=== PATIENT | male | born 1940 | race Asian ===

== ENCOUNTER 2020-03-02 16:06 | Inpatient (IN) | payer OTHER, SELFPAY ==
[~2020-03-02] VITALS: Ht 167.6 cm; Wt 61.2 kg
--- NOTE | 2020-03-02 16:06 | NUR ---
Patient BIBA ALS accompanied by LACoFD, transferred to bed 7. RN evaluating the patient at bedside.
[2020-03-02 16:12] VITALS: BP 77/48
--- NOTE | 2020-03-02 16:19 | NUR ---
79 YO MALE BIBA FROM TELETR[facility] OPER[facility], EMS 12 LEAD READS HEART BLOCK PT HYPOTENSIVE PMH- DIALYSIS T/TH/SAT, L ARM SHUNT
--- NOTE | 2020-03-02 16:49 | NUR ---
DAUGHTER YRN FLORIDALMA- [phone]
[2020-03-02] MEDS ORDERED: cefTRIAXone 1,000 MG VIAL ONE (16:51)
--- NOTE | 2020-03-02 16:57 | NUR ---
senior tech manufacturing engineering at bedside.
[2020-03-02] MEDS ORDERED: NOREPINEPHRINE 8 MG in DEXTROSE 5% 250 ML IV PRN (17:20)
[2020-03-02 17:58] LABS: BASOPHILS % (AUTO) 0.3 % (0.0-2.0); EOSINOPHILS % (AUTO) 0.5 % (0.0-4.0); HEMATOCRIT 31.9 % (36-52); HEMOGLOBIN 9.8 g/dL (12.0-18.0); LYMPHOCYTES # (AUTO) 0.8 K/uL (2.0-11.5); LYMPHOCYTES % (AUTO) 10.4 % (20.5-51.1); MEAN CORPUSCULAR HEMOGLOBIN 25 pg (27-31); MEAN CORPUSCULAR HGB CONC 31 g/dL (33-37); MEAN CORPUSCULAR VOLUME 81.9 fL (80-94); MONOCYTES # (AUTO) 0.5 K/uL (0.8-1.0); MONOCYTES % (AUTO) 5.7 % (1.7-9.3); NEUTROPHILS # (AUTO) 6.6 K/uL (1.8-7.7); NEUTROPHILS % (AUTO) 83.1 % (42.2-75.2); PLATELET COUNT (AUTO) 125 K/uL (140-450); RED CELL DISTRIBUTION WIDTH 16.3 % (11.6-13.7)
--- NOTE | 2020-03-02 19:00 | NUR ---
PT CALLED FOR UPDATE.
[2020-03-02 19:16] LABS: ALBUMIN 1.6 g/dL (3.4-5.0); ANION GAP 14.8 (8-16); ASPARTATE AMINOTRANSFERASE 24 U/L (15-37); CARBON DIOXIDE 29.6 mmol/L (21-32); CHLORIDE 97 mmol/L (98-107); GLUCOSE 162 mg/dL (74-106); POTASSIUM 3.4 mmol/L (3.5-5.1); SODIUM SERUM 138 mmol/L (136-145); TOTAL BILIRUBIN 0.7 mg/dL (0.0-1.0); UREA NITROGEN, BLOOD 36 mg/dL (7-18)
[2020-03-02 19:18] LABS: CREATININE 5.6 mg/dL (0.6-1.3)
--- NOTE | 2020-03-02 19:23 | NUR ---
Pt report RECEIVED FROM SALVATORE RAMOS. Transfer of care at this time.
--- NOTE | 2020-03-02 21:03 | NUR ---
PT IS RESTING IN BED. BP IS 83/46,
--- NOTE | 2020-03-02 21:04 | NUR ---
PT'S SPO2: 95% SULMA MEJÍA MADE AWARE. PT IS C/O GENERALIZED BODY PAIN WHEN TOUCHED. 3/10 PAIN. SIDE RAIL X2, BED IN LOW POSITION, WILL CONTINUE TO MONITOR.
--- NOTE | 2020-03-02 23:04 | NUR ---
PT'S BP 78/45, SULMA ELLIOTT MADE AWARE.
--- NOTE | 2020-03-02 23:05 | NUR ---
REQUESTED 2ND REQUEST FROM PT, PT STATES "NO, I DON'T HAVE ANY, AND I DO NOT FEEL LIKE IT." SULMA ELLIOTT, AND LAB MADE AWARE.
[2020-03-02] MEDS ORDERED: NACL 0.9% 1,000 ML IV ONE (23:15)
--- NOTE | 2020-03-02 23:31 | NUR ---
PT TAKEN TO CT
--- NOTE | 2020-03-02 23:41 | NUR ---
NS 1,000ML BOLUS STARTED PER ERMD ORDER. WILL REEVALUATE PT IN A FEW MINUTES FOR BP INCREASE.
--- NOTE | 2020-03-02 23:55 | NUR ---
PT'S BP RECHECKED NOW AT 99/54, SULMA ELLIOTT MADE AWARE.
[2020-03-03] VITALS (21 sets, daily range): BP systolic 95–131; BP diastolic 36–81
[2020-03-03] MEDS ORDERED: ALBUMIN HUMAN 25% 100 ML IV ONE (00:55)
--- NOTE | 2020-03-03 00:57 | NUR ---
PT SIGNED CONSENT FOR TRANSFER TO [facility]
--- NOTE | 2020-03-03 01:04 | NUR ---
ALBUMIN 25MG/ML IV WAS STARTED PER ERMD ORDER FOR BP. PT RESTING QUIETLY IN BED, NO DISTRESS VERBALIZED OR NOTED. R/R EQUAL, AND UNLABORED. SIDE RAIL X2, BED IN LOW POSITION, WILL CONTINUE TO MONITOR.
[2020-03-03] MEDS ORDERED: NOREPINEPHRINE 4 MG/4 ML VIAL IV ONE (02:18)
--- NOTE | 2020-03-03 02:25 | NUR ---
DR ELLIOTT AWARE OF PERSISTANT HYPOTENSION. VERBAL ORDER TO START LEVOPHED.
--- NOTE | 2020-03-03 02:30 | NUR ---
TRANSFER OF CARE. RECIVED REPORT FROM YUDI CHASE. PT AAO X3 TO PERSON, PLACE, SITUATION. PT HAS DIALYSIS SHUNT IN L UPPER ARM. BURIT HEARD, THRILL FELT. NO BP/IV/BLOOD DRAW IN L UPPER ARM. PT STATES HE LIVES AT HOME AND WAS AT [facility] [employer] WHEN 911 WAS CALLED AND HE WAS BROUGHT HERE. PT UNABLE TO TELL ME NAME OF PAPER TWISTER TENDER AND WHAT HOME MEDICATIONS HE IS TAKING. PT DENIES PAIN AT THIS TIME. BP: 87/47. LEVOPHED STARTED @ 5MCG/MIN IN R AC. IV @ R AC PATENT.
--- NOTE | 2020-03-03 02:30 | NUR ---
LEVOPHED STARTED AT 5MCG. SEE FLOWSHEET FOR VITAL SIGNS AND TITRATIONS.
--- NOTE | 2020-03-03 02:31 | NUR ---
EXPRESSED CONCERN OF NEED FOR CENTRAL LINE DUE TO LEVOPHED ADMINISTRATION WITH DR ELLIOTT. STATES "ITS FINE" NO FURTHER ORDERS RECEVIED.
--- NOTE | 2020-03-03 03:00 | NUR ---
SEE IV SPREAD SHEET FOR VS.
--- NOTE | 2020-03-03 03:30 | NUR ---
PT RESTING IN BED, EYES CLOSED. PT RESPONSIVE TO VERBAL STIMULI. PT DENIES PAIN. PT IV SITE IS PATENT, NO PAIN, REDNESS AT SITE. PT BED LOCKED AND IN LOWEST POSTION. SIDE RAIL UP X 1.
--- NOTE | 2020-03-03 04:30 | NUR ---
RECEIVED PT FROM ER VIA GURNEY; PT TRANSFERRED TO ICU BED 7.MONITORS ATTACHED.SR WITH 1ST DEGREE AV BLOCK NOTED.PT ALERT AND ORIENTED X 2-3; FORGETFUL.ON 02NC AT 2LPM.NO SOB NOTED.WITH PERIPHERAL IV TO RT AC G20 INFUSING LEVOPHED 8MG IN 250ML D5W AT 5MCG/MIN(9.37ML/HR) ; SALINE LOCK TO CAMACHO G20 AND RT WRIST G22.ABDOMEN LARGE,SOFT NON TENDER.DANIEL AV SHUNT WITH BRUIT /THRILL.PT OLIGURIC.HD SCHEDULED FOR TTHS.WITH GENERALIZED WEAKNESS NOTED TO ALL EXTREMITIES.SKIN INTACT BUT DRYNESS NOTED TO ALL TOES.DENIES PAIN
--- NOTE | 2020-03-03 04:45 | NUR ---
Patient will be admitted to care of . Admited to ICU. Will go to room 7. Belongings list completed. Report to DIONTE CHASE.
--- NOTE | 2020-03-03 06:00 | NUR ---
PHONE CALL TO PTS DEDRICK; PER PTS PT HAS ADVANCE DIRECTIVE; COPY REQUESTED.PTS SAID SHE WILL BRING A COPY. PTS HISTORY ALSO PROVIDED BY PTS .SHE SAID SHE DOES NOT KNOW IF PT RECEIVED PNEUMONIA AND FLU VACCINE.WILL F/U
--- NOTE | 2020-03-03 06:45 | NUR ---
DR TAMEZ IN THE UNIT; SHOWED DR TAMEZ THE COPY OF THE ADVANCE DIRECTIVE; PER MD CHANGE CODE STATUS TO DNR ALSO CONSULTED LAUREN PATEL FOR HD ORDERS.AWAITING REPLY.SPOKE WITH EXCHANGE
--- NOTE | 2020-03-03 07:00 | NUR ---
REPORT GIVEN TO RAGHAV CHASE FOR CONTINUITY OF CARE
[2020-03-03] MEDS ORDERED: guaiFENesin DM 200/20 MG-10 ML 10 ML UDC PO PRN (07:10)
[2020-03-03] MEDS ORDERED: DOCUSATE SODIUM 100 MG GELCAP PO PRN (07:10)
[2020-03-03] MEDS ORDERED: HYDROcodone/APAP 7.5/325 MG 1 TAB PO PRN (07:10)
[2020-03-03] MEDS ORDERED: KCL 20 MEQ/WATER INJ PREMIX 200 ML IV PRN (07:10)
[2020-03-03] MEDS ORDERED: ONDANSETRON 4 MG/2 ML VIAL IM/IVP PRN (07:10)
[2020-03-03] MEDS ORDERED: ACETAMINOPHEN 325 MG TAB PO PRN (07:10)
[2020-03-03] MEDS ORDERED: ZOLPIDEM 5 MG TAB PO PRN (07:10)
[2020-03-03] MEDS ORDERED: NOREPINEPHRINE 8 MG in DEXTROSE 5% 250 ML IV PRN (07:15)
[2020-03-03] MEDS: DEXT 5% /NACL 0.9% 1,000 ML IV SCH ×2 (08:30→20:34)
[2020-03-03] MEDS ORDERED: PRO5 PO (08:45)
[2020-03-03] MEDS ORDERED: ALLO100T21 PO (08:45)
[2020-03-03] MEDS ORDERED: PANT40EC PO (08:45)
[2020-03-03] MEDS ORDERED: NEP PO (08:45)
[2020-03-03] MEDS ORDERED: PRAV20TA6 PO (08:45)
[2020-03-03] MEDS ORDERED: VITA1TAB44 PO (08:45)
[2020-03-03] MEDS ORDERED: APIX2.5 PO (08:45)
[2020-03-03] MEDS ORDERED: ASPI-1822 PO (08:46)
[2020-03-03 08:48] LABS: BASOPHILS % (AUTO) 0.1 % (0.0-2.0); EOSINOPHILS # (AUTO) 0.1 K/uL (0-0.4); EOSINOPHILS % (AUTO) 0.8 % (0.0-4.0); HEMATOCRIT 27.7 % (36-52); HEMOGLOBIN 8.7 g/dL (12.0-18.0); LYMPHOCYTES # (AUTO) 0.8 K/uL (2.0-11.5); MEAN CORPUSCULAR HEMOGLOBIN 26 pg (27-31); MEAN CORPUSCULAR HGB CONC 31 g/dL (33-37); MEAN CORPUSCULAR VOLUME 82.8 fL (80-94); MONOCYTES # (AUTO) 0.4 K/uL (0.8-1.0); MONOCYTES % (AUTO) 4.7 % (1.7-9.3); NEUTROPHILS # (AUTO) 7.3 K/uL (1.8-7.7); NEUTROPHILS % (AUTO) 85.4 % (42.2-75.2); PLATELET COUNT (AUTO) 81 K/uL (140-450); RED BLOOD CELL COUNT(AUTO) 3.35 MIL/uL (4.20-6.10); WHITE BLOOD COUNT (AUTO) 8.5 K/uL (4.8-10.8)
[2020-03-03 09:00] LABS: ANION GAP 9.5 (8-16); CARBON DIOXIDE 33.5 mmol/L (21-32); CHLORIDE 101 mmol/L (98-107); GLUCOSE 106 mg/dL (74-106); SODIUM SERUM 141 mmol/L (136-145); UREA NITROGEN, BLOOD 39 mg/dL (7-18)
[2020-03-03] MEDS ORDERED: PANTOPRAZOLE 40 MG TABEC PO SCH (09:00)
[2020-03-03] MEDS: APIXABAN 2.5 MG TAB PO SCH ×2 (09:00→20:29)
[2020-03-03 09:10] LABS: PROTHROMBIN TIME 12.9 secs (10.8-13.4)
[2020-03-03 09:23] LABS: CHOL/HDL RATIO 5.4 (1-4.5); FREE T4 (FREE THYROXINE) 1.2 ng/dL (0.76-1.46); MAGNESIUM 1.4 mg/dL (1.8-2.4); PHOSPHORUS 3.3 mg/dL (2.5-4.9); THYROID STIMULATING HORMONE 1.09 uIU/mL (0.34-3.74)
[2020-03-03 09:32] LABS: CREATININE 5.9 mg/dL (0.6-1.3)
--- NOTE | 2020-03-03 09:34 | NUR ---
PATIENT HAS BEEN SCREENED AND CATEGORIZED HIGH NUTRITION RISK. PATIENT WILL BE SEEN WITHIN 1-2 DAYS OF ADMISSION. 03/03/20-03/04/[address]
[2020-03-03] MEDS: PANTOPRAZOLE 40 MG INJ VIAL IVP SCH (10:00)
--- NOTE | 2020-03-03 10:48 | NUR ---
DISCHARGE PLANNING: THIS IS A 79 Y/O MALE PATIENT FROM HOME, WHO WAS BIBA DUE TO LOW BLOOD PRESSURE. PAST MEDICAL HISTORY INCLUDE ESRD, ON HD, SEVER CAD, S/P CABG AND AFIB. INITIAL DIAGNOSIS OF INTRACTABLE HYPOTENSION. CURRENT LABS INCLUDE WBC 8.5, H/H 8.7/27.7, NA/K 141/3.0, BUN/CREA 39/5.9, MAG 1.4, BNP 242. MRSA NARES, BLOOD CS PENDING. HEAD CT SHOWED NO EVIDENCE OF ACUTE INTRACRANIAL PATHOLOGY. CXR SHOWED MILD ELEVATION OF THE RIGHT DIAPHRAGM AND LEFT BASE SCARRING OR ATELECTASIS. CARDIO, PULMO AND NEPHRO CONSULTS IN PLACE. DC PLAN BACK TO HOME ONCE STABLE. CONTACTED PATIENT'S DEDRICK HUTNER AT [phone] TO GATHER INFORMATION. PER DEDRICK, THEY WERE AT THE DOCTOR[facility]S CLIN[facility] (DR. LYLE) YESTERDAY FOR CARDIO FOLLOW UP WHEN THE PATIENT'S BLOOD PRESSURE BECAME LOW AND THE PANTS CLOSER RECOMMENDED FOR THEM TO GO TO THE EMERGENCY ROOM AND AMBULACE TOOK THE PATIENT HERE WHEN SHE SPECIFICALLY TOLD THEM THAT THEY NORMALLY GO TO [facility]. PER DEDRICK, AMBULANCE PERSON TOLD HER 'NO, WE ARE TAKING THE PATIENT TO [facility]." SHE STATED THAT SHE DID NOT UNDERSTAND WHY TAKE THE PATIENT HERE WHEN [facility] IS JUST [address] FROM THE CLINIC, "I GUESS IT'S GOD'S WILL THAT IT WILL BE IN A DIFFERENT HOSPITAL THIS TIME. SHE PROVIDED ME WITH HER DAUGHTER'S YRN HEDRICK'S NUMBER [phone] IF I HAVE MORE QUESTIONS. CONTACTED YRN COOK AT THE PROVIDED NUMBER. PER YRN PATIENT WAS AT [facility] AND WAS DISCHARGED TO HOME ON FEBRUARY 14, 2020. SHE STATED PATIENT HAS A WALKER, WHEELCHAIR AND A BEDSIDE COMMODE AT HOME. SHE ALSO MENTIONED THAT THEIR IS A CAREGIVER WHO COMES IN T-TH-SAT DURING DIALYSIS DAYS TO HELP THEM OUT WITH TRANSPORT. PATIENT GOES TO [facility] FOR DIALYSIS T-TH-SAT AT 1315. TRANSPORTATION IS BEING PROVIDED BY [facility]. HIS REFINERY OPERATOR HELPER IS DR. AGUERO. YEE POOL, PATIENT WAS AT [facility]IOR TO [facility] AND WAS TOLD THAT THERE IS A MASS ON HIS "GUT" ON US AND COLOSCOPY WAS RECOMMENDED. GI FOLLOW UP APPOINTMENT IS SET FOR APR 13, 2020. SHE ALSO STATED THAT SHE REQUESTED PALLIATIVE CARE FROM THE INSURANCE AND NOTHING HAS BEEN AUTHORIZED YET. SHE STATED "SINCE THE PATIENT IS IN YOUR HOSPITAL, MAYBE YOU CAN DO THE COLONOSCOPY, SO HE WILL NOT GO TO HIS APPOINTMENT ANYMORE ON Mar. MY FATHER IS WEAK AND MY MOTHER IS OLD TOO. IT'S HARD FOR THEM TO GO TO FOLLOW UP VISITS." INFORMED HER THAT I WILL DISCUSS IT WITH THE ATTENDING. DR. TAMEZ MADE AWARE. PER DR. TAMEZ, WILL TRANSFER PATIENT BACK TO [facility] ONCE STABLE SO THEY CAN FOLLOW UP THE PATIENT THERE SINCE THEY HAVE ALL THE RECORDS. Addendum: 03/03/20 at 1236 by Ruchi Muro CM DC PLANNING: RECEIVED A CALL FROM [facility] SPOKE WITH [facility], SHE ASKED IF PATIENT IS STABLE TO TRANSFER TO [facility] , CONTACTED DR TAMEZ DISCUSSED PATIENT STABILITY, PER DR TAMEZ PT IS NOT STABLE FOR TRANSFER. INFORMED ERICA BURNETT AT [facility] STATED TO CONTACT HER WHEN PATIENT IS STABLE FOR TRANSFER. CM TO FOLLOW Addendum: 03/04/20 at 1056 by Ruchi Muro CM DC DEVELOPMENTAL SERVICES WORKER: RECEIVED A CALL FROM MATTHEW SPOKE WITH LEX MALDONADO REGARDING THE TRANSFER TO THE CONTRACTED FACILITY [facility]. ERICA STATED SHE REVIEWED THE CLINICALS BP IS WNL NO DRIPS , ECHO RESULT NORMAL AND REQUESTED PT CAN BE DISCHARGED HOME WITH IN THE NEXT 24-[address]. [address] TAMEZ AND PER DR TAMEZ AGREED PT CAN STAY AND WILL DC TOMORROW OR THE . I ASKED ERICA FOR HARD COPY OF AUTH TO STAY , SHE PROVIDED THE AUTH # [id number] AND STATED THE HARD COPY WON'T BE READY UNTIL WE DISCHARGE THE PT. Addendum: 03/05/20 at 1223 by Ruchi Muro CM DC PLANNING: CALLED MATTHEW SPOKE WITH ERICA BURNETT INFORMED HER ABOUT FAMILY REQUEST FOR COLONOSCOPY TO BE DONE AT THE [facility]. PER ERICA REVIEWED THE CLINICALS AND NO INDICATION FOR THE NEED OF GI CONSULT CAN NOT APPROVE THE COLONOSCOPY UNLESS THERE IS AN EMERGENCY NEEDS.DR ANGELA CALLED DAUGHTER YRN [phone] UPDATED HER PT'S CLINICAL AND ORDERED CT OF ABD/PELVIS. I SPOKE WITH YRN AND EXPLAINED THE PT RECOMMENDATIONS FOR HIM TO GO TO SNF FOR PHYSICAL THERAPY AND I PROVIDED ALL THE CONTRACTED FACILITIES. YRN STATED WILL DISCUSSED IT WITH HER MOM AND OTHER FAMILY AND WILL GET ME BACK. SHE ALSO REQUESTED THE SNF MEDICARE DAYS TO BE CHECKED WITH THE INSURANCE . I CALLED MATTHEW AND LEFT A MESSAGE TO ERICA BURNETT TO FOLLOW. Addendum: 03/05/20 at 1317 by Ruchi Muro CM DC PLANNING: CHECK THE MEDICARE SNF DAYS WITH EMMIE SIDDIQUI PT HAS FULL SNF DAYS CALLED DAUGHTER YRN [phone] LEFT A MESSAGE. LEX TO FOLLOW Addendum: 03/06/20 at 1224 by Ana Magallon CM FAXED PATIENTS CLINICALS TO [facility] [phone] WILL FOLLOW UP Addendum: 03/06/20 at 1415 by Ana Magallon FOLLOWED UP WITH [facility] AND SPOKE TO JENNA THEY RECEIVED FAX AND ARE REVIEWING CLINICALS. SHE STATED THAT THIS PATIENT HAS BEEN WITH THEM BEFORE. I WILL FOLLOW UP. IF PATIENT DISCHARGES OVER THE WEEKEND WE CAN ASK FOR KO IN ADMISSIONS. Addendum: 03/06/20 at 1621 by Ruchi Muro DC PLANNING: CALLED YRN PT'S DAUGHTER AT [phone] NOTIFIED HER THAT PER HER REQUEST [facility] ACCEPTED PATIENT AND CAN BE DC TODAY SHE STATED THAT THE FAMILY DOESN'T WANT HIM TO GO TO SNF AND SHE WANTED HIM TO GO HOME. I EXPLAINED THAT IF SHE WANTED HOME HEALTH WE CAN ARRANGE. YRN ASKED THE DR SANCHES TO CALL HER TO EXPLAIN THE CT OF ABD , TRANSFERRED THE CALL TO DR MCGRAW , EXPLAINED THE THE RESULT AND UPDATE HER WITH PT 'S CONDITION AND ANSWERED ALL THE ISSUES AND CONCERN. CALLED [facility] INSURANCE [phone] LEFT A MESSAGE FOR MARY[facility] FOR HOME HEALTH AUTHORIZATION CM TO FOLLOW Addendum: 03/06/20 at 1624 by Ruchi Muro CM DC PLANNING: CALLED [phone] YRN PATIENT'S DAUGHTER NOT ANSWERING HER PHONE LEFT A MESSAGE. Addendum: 03/06/20 at 1635 by Ruchi Muro CM DC PLANNING: RECEIVED A CALL FROM MATTHEW VELA WITH [facility] BURNETT STATED SHE HAS BEEN WORKING WITH THEM BEFORE VERY INVOLVE WITH THE CARE. [facility] STATED LET THE PATIENT STAY TODAY AND WORK ON IT TOMORROW AND REQUESTED TO BE CALLED WITH THIS NUMBER [phone] .CHARGE NURSE PLS CALL AMOS CASTRO CM . Addendum: 03/09/20 at 1354 by Ruchi Muro CM DC PLANNING: CALLED [facility] AT [phone] TO CHECK THE STATUS OF THE APPEAL LEFT A MESSAGE. CHECKED AT THE WEB SITE ID # [id number] THEY ARE ON CLINICAL REVIEW APPEAL STARTED . CM TO FOLLOW Addendum: 03/10/20 at 1131 by Ruchi Muro CM DC PLANING: CHECKED [facility] 'S WEB SITE STILL ON THE PROCESS OF PHYSICIANS REVIEW NO FINAL RESULT. CM TO FOLLOW. Addendum: 03/10/20 at 1519 by Ruchi Muro CM DC PLANNING: RECEIVED A CALL FROM PT'S DAUGHTER YRN HEDRICK STATED SHE RECEIVED A DENIAL FROM MEDICARE VERY UPSET AND LOUD AND STATED SHE NEVER SAID NO FOR SNF OR HOME HEALTH AND ACCUSING US A LIAR . I EXPLAINED AND REMINDED HER OUR CONVERSATION ON MONDAY AND MONDAY AND ALSO SHE TOLD THE CHARGE NURSE AMY ON MONDAY THAT SHE DISAGREE WITH THE DISCHARGE AND TOLD THE CHARGE NURSE TO APPEAL TO MEDICARE AND APPEALED. CONTACTED MATTHEW SPOKE WITH ERICA BURNETT STATD STARTED 03/11 FAMILY IS FINANCIALLY RESPONSIBLE. PER FAMILY CHOICE PT CAN GO TO [facility] AND TRANSPORT WILL BE WITH OR [facility] ESCUDERO FOR TRANSPORT [id number] AND FOR SNF [id number] FOR HOME HEALTH AUTH # [id number] . LEX TO FOLLOW Addendum: 03/10/20 at 1555 by Yan Etienne DAREK CONTACTED ANNETTE HEDRICK [phone] REGARDING DISCHARGE PLAN. DAREK INFORMED ANNETTE THAT FAMILY WOULD BE FINANCIALLY RESPONSIBLE FOR PATIENT'S STAY ON 03/11/2020 AND THEREAFTER. DAREK ASKED ANNETTE WHAT HER DISCHARGE PLAN WAS FOR HER FATHER. ANNETTE EXPRESSED CONCERNS AND HAD MEDICAL QUESTIONS THAT DAREK REFERRED TO DR. TAMEZ. DR. TAMEZ CONTACTED ANNETTE AND BOTH WERE UNDER AGREEMENT FOR PATIENT TO BE DISCHARGED HOME TODAY WITH HOME HEALTH. DAREK CONTACTED [facility] [phone] AND SPOKE TO [facility] TO ARRANGE TRANSPORTATION. ZAY STATED THAT THERE WAS NO AVAILABLE TRANSPORTATION FOR 03/10/2020. DAREK CONTACTED [facility] [phone] AND SPOKE TO ANDRAE. ADREK ARRANGED FOR TRANSPORTATION WITH ANDRAE AT 2300 AFTER PATIENT'S DIALYSIS. DAREK PROVIDED AUTH #[id number] TO [facility] TRANSPORT[facility]. DAREK CONTACTED [facility] [phone] AND SPOKE TO [place]. DAREK FAXED CLINICALS TO [facility] [phone]. DAREK WAS CONTACTED BY ANNETTE HEDRICK AND INFORMED HER OF DISCHARGE PLAN PROGRESS. ANNETTE WAS AGREEABLE TO DISCHARGE PLAN. DAREK PROVIDED DIRECT LINE TO ANNETTE IF ANY FURTHER ISSUES ARISE. DAREK INFORMED SALVATORE ODONNELL. Addendum: 03/10/20 at 1659 by Ana Magallon CM DC PLANNING: CONTACTED [facility] THAT PATIENT WILL BE DISCHARGING TODAY
[2020-03-03] MEDS ORDERED: MIDODRINE 5 MG TAB PO SCH (11:40)
[2020-03-03] MEDS: MIDODRINE 5 MG TAB PO SCH ×2 (12:48→17:45)
--- NOTE | 2020-03-03 20:00 | NUR ---
RECEIVED REPORT FROM DAY SHIFT PATIENT IS AWAKE ALERT ORIENTED W/ SOME EPISODE OF BEING FORGETFUL.PATIENT IS FOLLOWING COMMAND AND IS ABLE TO MOVE HIS EXTREMITIES WITH LIMITED MOVEMENT PATIENT IS ON ROOM AIR AND IS SATURATING WELL RESPIRATION IS EASY AND REGULAR.BREATHE SOUND IS CLEAR SLIGHT DEMINISHED AT LOWER BASES.TEAM ASSISTANT SHOWS SINUS RYTHM PATIENT HAS ANEW MIDLINE CATHETER ON RIGHT UPPER ARM W/ DRESSING IN TACT THERE IS SLIGHT SWELLING NOTED ON RIGHT UPPER ARM W/C PATIENT IS COMPLAINING OF PAIN AND DISCOMFORT.ATIENT HAS A FISTULA ON LEFT UPPER ARM W/ GOOD BRUIT/.PATIENT ASKED TO BE CHANGED HE IS INCONTINENT OF SMALL AMOUNT OF URINE AND STOOL.PERICARE DONE. PATIENT ENCOURAGED TO EAT HIS DINNER W/ HE TOOK ABOUT 20% BUT HE NEEDS TO BE FED. PATIENT IS IN SINUS RYTHM NO LEVOPHED HAS BEEN OFF BLOOD PRESSURE HAS BEEN STAYING STABLE ABOVE 100 SYSTOLIC.
[2020-03-03] MEDS: SIMVASTATIN 10 MG TAB PO SCH (20:27)
[2020-03-04] VITALS (8 sets, daily range): BP systolic 102–143; BP diastolic 49–78
--- NOTE | 2020-03-04 03:00 | NUR ---
PATIENT BLOOD PRESSURE REMAIN STABLE,CONTINUE ON IVF OF D0.9NS AT 100CC/HR,STILL OFF LEVOPHEDMONITOR SINUS RYTHM-SINUS KWAN WITH FIRST DEGREE AV BLOCK.
[2020-03-04] MEDS: DEXT 5% /NACL 0.9% 1,000 ML IV SCH ×3 (03:08→23:17)
--- NOTE | 2020-03-04 04:30 | NUR ---
PATIENT REFUSED TO HAVE HIS BLOOD DRAWNED.PATIENT ONLY HAS MIDLINE IN PLACE ON RIGHT UPPER AR.
--- NOTE | 2020-03-04 06:00 | NUR ---
patient is made aware of his being transfeed to telemetry.he express his wish not to transfer.he has been told the reasons and he understood.
--- NOTE | 2020-03-04 06:40 | NUR ---
TRANSFERRED PATIENT TO TELEMETRY BY BED,REPORT GIVEN TO ALEJANDRA AT BEDSIDE.
--- NOTE | 2020-03-04 06:50 | NUR ---
RECEIVED PT FROM ICU / ROBERT COPELAND , NID 02 SAT WNL , IV SITES INTACT AND PATENT , W/ HD DANIEL - INTACT . ON TELE MONITOR . SAFETY MEASURES IN PLACE . PLAN OF CARE DISCUSSED AND VERBALIZE FAIR UNDERSTANDING - NEEDS REINFORCEMENT . WILL CONT. TO MONITOR. SKIN INTACT .HAD SCANTY U.O ICU NURSE SAID .
--- NOTE | 2020-03-04 07:20 | NUR ---
RECEIVED REPORT FROM NIGHT NURSE. A0X4, ABLE TO MAKE NEEDS KNOWN, NO SOB O2SAT 98% ON RA. WITH CAMACHO MIDLINE D5 NS AT 100CC/HR AND RIGHT HAND 24G ON SL. SKIN IS INTACT. ISOLATION PRECAUTION OBSERVED, SAFETY PRECAUTIONS IN PLACE. CALL LIGHT WITHIN REACH. WILL CONTINUE TO MONITOR
--- NOTE | 2020-03-04 07:20 | NUR ---
ENDORSED TO AM SHIFT W/ BP 105/90 , MN 85 , 02 SAT 95 % , AFEBRILE . CALL LIGHT WITHIN REACH.
--- NOTE | 2020-03-04 08:50 | NUR ---
DUE MORNING MEDS GIVEN. TOLERATED PO MEDS WELL
[2020-03-04] MEDS: ASPIRIN 81 MG TAB.CHEW PO SCH (08:52)
[2020-03-04] MEDS: PANTOPRAZOLE 40 MG INJ VIAL IVP SCH (08:52)
[2020-03-04] MEDS: MIDODRINE 5 MG TAB PO SCH ×3 (08:52→17:29)
[2020-03-04] MEDS: allopurinoL 100 MG TAB PO SCH (08:52)
[2020-03-04] MEDS: APIXABAN 2.5 MG TAB PO SCH ×2 (09:00→21:14)
--- NOTE | 2020-03-04 11:30 | NUR ---
PT AWAKE IN BED. NO APPARENT DISTRESS, NO C/O PAIN, NO SOB
--- NOTE | 2020-03-04 13:48 | NUR ---
PT AWAKE IN BED. NO C/O PAIN, NO S/S OF DISTRESS
--- NOTE | 2020-03-04 15:39 | NUR ---
03/04/20 RD INITIAL ASSESSMENT COMPLETED PLEASE REFER TO NUTRITION ASSESSMENT UNDER CARE ACTIVITY FOR ESTIMATED NUTRITIONAL NEEDS. 1. RECOMMEND RENAL 80 GM PROTEIN DIET TOLERATED 2. RECOMMEND NEPRO BID 3. ENCOURAGE INCREASING PO INTAKE 4. RD TO FOLLOW-UP 2-3 DAYS, HIGH RISK SALVADOR PORTER, RD
--- NOTE | 2020-03-04 16:45 | NUR ---
PT ASLEEP IN BED NO APPARENT DISTRESS, O2SAT 99% ON ROOM AIR. V/S WNL
--- NOTE | 2020-03-04 18:27 | NUR ---
PT IN BED. NO C/O PAIN, RESPIRATIONS ARE EVEN AND UNLABORED, AFEBRILE
[2020-03-04] MEDS: SIMVASTATIN 10 MG TAB PO SCH (21:12)
[2020-03-05] VITALS: BP 118/40
--- NOTE | 2020-03-05 01:00 | NUR ---
RECEIVED PT FROM AR CHASE PT IS AAOX4 RESTING ON BED , ON TELEMETRY SR, AV SHUNT FOR DIALYSIS ON LEFT UA AND PICC LINE ON RT UA INFUSING WELL IV FLUIDS , NOT DISTRESS NOTED AT THIS TIME INITIAL ASSESSMENT DONE
[2020-03-05 04:00] VITALS: BP 97/66
--- NOTE | 2020-03-05 04:00 | NUR ---
PT AWAKE IV ON RT UPPER ARM PICC LINE INFUSING WELL ON TELEMETRY SR,SPONGE BATH GIVEN LINEN CHANGED
--- NOTE | 2020-03-05 07:25 | NUR ---
RECEIVED REPORT FROM NIGHT NURSE PT IS AWAKE AND AAOX3, ON ROOM AIR AND IV SITES INTACT AND ATENT ON RIGHT UA PICC LINE AND IV SHUNT LEFT HAND. PT IS SCHEDULED FOR DIALYSIS TODAY. SAFETY MEASURES IN PLACE, CALL LIGHT WITHIN REACH AND WILL CONTINUE TO MONITOR.
[2020-03-05 07:26] LABS: BASOPHILS % (AUTO) 0.3 % (0.0-2.0); EOSINOPHILS # (AUTO) 0.1 K/uL (0-0.4); EOSINOPHILS % (AUTO) 1.5 % (0.0-4.0); HEMATOCRIT 32.1 % (36-52); HEMOGLOBIN 9.9 g/dL (12.0-18.0); LYMPHOCYTES % (AUTO) 17.1 % (20.5-51.1); MEAN CORPUSCULAR HEMOGLOBIN 26 pg (27-31); MEAN CORPUSCULAR HGB CONC 31 g/dL (33-37); MEAN CORPUSCULAR VOLUME 82.8 fL (80-94); MONOCYTES # (AUTO) 0.6 K/uL (0.8-1.0); NEUTROPHILS # (AUTO) 4.4 K/uL (1.8-7.7); NEUTROPHILS % (AUTO) 72.1 % (42.2-75.2); PLATELET COUNT (AUTO) 97 K/uL (140-450); RED BLOOD CELL COUNT(AUTO) 3.88 MIL/uL (4.20-6.10); RED CELL DISTRIBUTION WIDTH 16.8 % (11.6-13.7); WHITE BLOOD COUNT (AUTO) 6.1 K/uL (4.8-10.8)
[2020-03-05 08:00] VITALS: BP 152/69
[2020-03-05 08:03] LABS: ANION GAP 12.2 (8-16); CARBON DIOXIDE 27.9 mmol/L (21-32); CHLORIDE 106 mmol/L (98-107); GLUCOSE 97 mg/dL (74-106); POTASSIUM 4.1 mmol/L (3.5-5.1); SODIUM SERUM 142 mmol/L (136-145); UREA NITROGEN, BLOOD 24 mg/dL (7-18)
--- NOTE | 2020-03-05 08:49 | NUR ---
RECEIVED CRITICAL VALEU CREATININE 4.8 FROM DEANDRA. REPORTED TO CATHERINE FLAHERTY AND RECEIVED ORDERS. WILL CONTINUE TO MONITOR.
[2020-03-05 08:50] LABS: CREATININE 4.8 mg/dL (0.6-1.3)
[2020-03-05] MEDS: ASPIRIN 81 MG TAB.CHEW PO SCH (09:00)
[2020-03-05] MEDS: APIXABAN 2.5 MG TAB PO SCH ×2 (09:00→22:05)
[2020-03-05] MEDS: MIDODRINE 5 MG TAB PO SCH ×4 (09:00→17:13)
--- NOTE | 2020-03-05 09:00 | NUR ---
MEDICATIONS DUE GIVEN AND PATIENT TOLERATED WELL AND NO APPETITE AT THIS TIME. PATIENT IS SCHEDULE FOR DIALYSIS. BLOOD PRESSURE MEDICATIONS NOT GIVEN BECAUSE PATIENT IS SCHEDULED FOR DIALYSIS.
[2020-03-05] MEDS: PANTOPRAZOLE 40 MG INJ VIAL IVP SCH (10:21)
[2020-03-05] MEDS: DEXT 5% /NACL 0.9% 1,000 ML IV SCH ×3 (10:32→22:11)
[2020-03-05] MEDS: allopurinoL 100 MG TAB PO SCH (10:44)
--- NOTE | 2020-03-05 11:02 | NUR ---
UPHOLSTERY TECH NOTE: Patient's Orientation Unable To Assess Information Provided By DEDRICK HUNTER - Comments SW WAS UNABLE TO MEET PATIENT AT BEDSIDE DUE TO MEDICAL CONDITION. Diamond Picker, Realtionship and Phone Number DEDRICK PALMER [phone] Healthcare Power of Vocational Rehabilitation Teacher No Does Patient Have a POLST No Identifying Problems No Social Work Triggers Is A Social Work Consult Needed No Mandate Report Filed No Explanation Of Identifying Problems PATIENT IS A 79-YEAR-OLD MALE ADMITTED FOR INTRACTABLE HYPOTENSION. PATIENT HAS PMHX OF ESRD ON HEMO DIALYSIS, AND CAD. Admitted From Home Home Health Provider [facility] Pre-Admission Level Of Functioning Status Assist With ADL Level Of Functioning Comment PER DEDRICK PATIENT HAS A CAREGIVER NAMED BELINDA WHO ASSISTS WITH TRANSFERRING AND TRANSPORTATION. Prior Resources/Services Used In Last 12 Months No Prior Resources Used Prior DME Bedside Commode Walker Wheelchair Dialysis Hemodialysis Name And Phone Number of Dialysis Facility [facility] SAT Living Situation House Lives With Spouse Patient Had Caregiver Yes Home Support CG/Fam Able To Meet Need Financial Issues No Known Financial Issue Factors/Needs No D/C Needs Identified Pt/Rep Participated In Discharge Plan Yes Patient/Family Agress With Discharge Plan Yes Discharge Plan Comments TENTATIVE DISCHARGE PLAN IS FOR PATIENT TO RETURN HOME. DC Plan Status Initiated
[2020-03-05 12:00] VITALS: BP 143/61
--- NOTE | 2020-03-05 12:55 | NUR ---
PATIENT IS OUT IN HIS ROOM FOR CT OF THE ABDOMEN WITH CONTRAST.ESCORTED PATIENT TO RADIOLOGY DEPARTMENT. WILL CONTINUE TO MONITOR.
--- NOTE | 2020-03-05 13:15 | NUR ---
PATIENT IS BACK IN HIS ROOM PT IS STABLE.
--- NOTE | 2020-03-05 13:15 | NUR ---
PATIENT STARTED DIALYSIS AT THIS TIME, PATIENT BIS STABLE AND SLEEPING. CHECK VITAL SIGNS. SAFETY MEASURES IN PLACE, CALL LIGHT WITHIN REACH. WILL CONTINUE TO MONITOR.
[2020-03-05 16:00] VITALS: BP 134/62
--- NOTE | 2020-03-05 16:15 | NUR ---
PATIENTS DIALYSES ENDED AT THIS TIME, NO FLUID OUTPUT REPORTED BY THE DIALYSIS NURSE. CLEANS THE BLOOD. SAFETY MEASURES IN PLAC, CALL LIGHT WITHIN REACH WILL CONTINUE TO MONITOR.
--- NOTE | 2020-03-05 19:05 | NUR ---
ENDORSED TO NIGHT NURSE FOR CONTINUITY OF CARE. PT IS STABLE.
--- NOTE | 2020-03-05 19:10 | NUR ---
RECEIVED PT FROM DAY SHIFT NURSE PT IS AAOX2 HX DEMENTIA , COOPERATIVE, AV SHUNT FOR DIALYSIS ON LEFT UA AND MID LINE ON RT UA ON TELEMETRY ST PT REMAIN STABLE INITIAL ASSESSMENT DONE
[2020-03-05 20:00] VITALS: BP 124/51
--- NOTE | 2020-03-05 22:00 | NUR ---
SPONGE BATH GIVEN LINEN CHANGED PT COOPERATIVE ON TELE ST REPOSITIONED Q2 ON CLOSE MO;NITORING
[2020-03-05] MEDS: SIMVASTATIN 10 MG TAB PO SCH (22:03)
[2020-03-06] VITALS: BP 92/50
[2020-03-06 04:00] VITALS: BP 95/60
--- NOTE | 2020-03-06 04:00 | NUR ---
PT HAS BEEN MO;NITORING CLOSE NOT DISTRESSS NOTED ON TELE ST REMAIN STABLE
--- NOTE | 2020-03-06 06:45 | NUR ---
AFTER SPONGE BATH GIVEN PT REMAIN QUIET NOT DISTRESS NOTED , ON TELE SR PT WILL BE ENDORSED TO DAY SHIFT NURSE FOR VONTINUE OF CARE
--- NOTE | 2020-03-06 07:30 | NUR ---
RECEIVED PT FROM CARE PROGRAM RESIDENT NURSE, RODRICK, PT IS AWAKE AND LYING ON THE BED AND WITH A RT UA MIDLINE, DOUBLE LUMEN, WITH IVF D5 NS INFUSING AT 100ML/HR, PT IS ON ROOM AIR AND SATURATION AT 98%, PT IS ON BEDREST, WITH A LEFT UA AV SHUNT IN PLACE FOR DIALYSIS, NO SIGN OF DISTRESS NOTED AND WILL CONTINUE TO MONITOR PT.
[2020-03-06 08:00] VITALS: BP 159/69
[2020-03-06] MEDS: APIXABAN 2.5 MG TAB PO SCH ×2 (09:00→21:00)
[2020-03-06] MEDS: MIDODRINE 5 MG TAB PO SCH ×3 (09:00→17:38)
[2020-03-06] MEDS: allopurinoL 100 MG TAB PO SCH (09:16)
[2020-03-06] MEDS: ASPIRIN 81 MG TAB.CHEW PO SCH (09:21)
[2020-03-06] MEDS: PANTOPRAZOLE 40 MG INJ VIAL IVP SCH (09:21)
--- NOTE | 2020-03-06 09:21 | NUR ---
PT WAS GIVEN THE SCHEDULED AM MEDICATIONS, ELIQUIS WAS NOT GIVEN DUE TO LOW PLATELET, TOLERATED THE MEDICINES AND WILL MONITOR PT.
--- NOTE | 2020-03-06 10:30 | NUR ---
PT WAS CLEANED AND REPOSITIONED AND AN OPTIFOAM DRESSING WAS APPLIED TO MHYI2ON AREA TO PREVENT SKIN TEAR.
[2020-03-06 12:00] VITALS: BP 117/99
--- NOTE | 2020-03-06 12:30 | NUR ---
PT IS RESTING NOW AND NO SIGN OF DISTRESS NOTED. WILL MONITOR PT.
--- NOTE | 2020-03-06 14:36 | NUR ---
03/06/20 RD FOLLOW UP COMPLETED PLEASE REFER TO NUTRITION ASSESSMENT UNDER CARE ACTIVITY FOR ESTIMATED NUTRITIONAL NEEDS. 1. RECOMMEND MECHANICAL SOFT RENAL 80 GM PROTEIN DIET TOLERATED 2. ENCOURAGE INCREASING PO INTAKE 3. RD TO FOLLOW-UP 2-3 DAYS, HIGH RISK SALVADOR PORTER, RD
[2020-03-06] MEDS: DEXT 5% /NACL 0.9% 1,000 ML IV SCH (15:12)
[2020-03-06 16:00] VITALS: BP 109/63
[2020-03-06 16:04] LABS: BASOPHILS % (AUTO) 0.9 % (0.0-2.0); EOSINOPHILS # (AUTO) 0.1 K/uL (0-0.4); EOSINOPHILS % (AUTO) 1.6 % (0.0-4.0); HEMATOCRIT 27.6 % (36-52); HEMOGLOBIN 8.6 g/dL (12.0-18.0); LYMPHOCYTES # (AUTO) 0.7 K/uL (2.0-11.5); LYMPHOCYTES % (AUTO) 18.5 % (20.5-51.1); MEAN CORPUSCULAR HEMOGLOBIN 25 pg (27-31); MEAN CORPUSCULAR HGB CONC 31 g/dL (33-37); MEAN CORPUSCULAR VOLUME 81.4 fL (80-94); MONOCYTES # (AUTO) 0.3 K/uL (0.8-1.0); MONOCYTES % (AUTO) 8.2 % (1.7-9.3); NEUTROPHILS # (AUTO) 2.7 K/uL (1.8-7.7); NEUTROPHILS % (AUTO) 70.8 % (42.2-75.2); PLATELET COUNT (AUTO) 86 K/uL (140-450); RED BLOOD CELL COUNT(AUTO) 3.39 MIL/uL (4.20-6.10); RED CELL DISTRIBUTION WIDTH 16.9 % (11.6-13.7); WHITE BLOOD COUNT (AUTO) 3.8 K/uL (4.8-10.8)
[2020-03-06 16:20] LABS: CHLORIDE 107 mmol/L (98-107); CREATININE 3.7 mg/dL (0.6-1.3); GLUCOSE 100 mg/dL (74-106); SODIUM SERUM 142 mmol/L (136-145); UREA NITROGEN, BLOOD 15 mg/dL (7-18)
[2020-03-06 16:25] LABS: MAGNESIUM 1.1 mg/dL (1.8-2.4); PHOSPHORUS 2.1 mg/dL (2.5-4.9)
--- NOTE | 2020-03-06 16:25 | NUR ---
PT'S IVF BAG WAS CHANGED NOW. Addendum: 03/06/20 at 1829 by Liana Barber RN NOTES ABOVE WAS NOT INTENDED FOR THE PT.
--- NOTE | 2020-03-06 16:50 | NUR ---
DR. ANGELA MADE A TELEPHONE ORDER TO GIVE PT 4GM OF MGSO4 FOR MG LEVEL OF 1.2, 40MEQ K RIDER , 20MEQ POTASSIUM ELIXIR FOR K LEVEL OF 3.0 AND 2 PACKETS OF NEUTRA-PHOS FOR PHOSPHORUS OF 2.1, ORDERS READ BACK AND VERIFIED AND WILL BE CARRIED OUT.
[2020-03-06] MEDS ORDERED: MAG SULF 2000 MG/WATER PREMIX 50 ML IV SCH ×2 (17:00→19:00)
[2020-03-06] MEDS ORDERED: POTASSIUM CHLORIDE 20% 40 MEQ/15 ML UDC PO SCH (17:30)
[2020-03-06] MEDS ORDERED: SODIUM PHOS / POTASSIUM PHOS 1 PKT PDR PO SCH (17:30)
--- NOTE | 2020-03-06 17:40 | NUR ---
PT WAS GIVEN THE SCHEDULED MEDICATIONS IV AND ORAL, TOLERATED AND WILL MONITOR PT.
--- NOTE | 2020-03-06 19:30 | NUR ---
RECEIVED REPORT FORM JEFFERY CHASE DAYSHIFT NURSE AT BEDSIDE FOR CONTINUITY OF CARE, PT IN STABLE CONDITION.
--- NOTE | 2020-03-06 19:35 | NUR ---
ENDORSED PT TO HAND STONER NURSE JUSTINO FOR CONTINUITY OF CARE.
[2020-03-06 20:00] VITALS: BP 96/54
--- NOTE | 2020-03-06 20:00 | NUR ---
PT IN BED AOX1-2. PT DENIES ANY PAIN OR DISTRESS. HE HAS A DOUBLE LUMEN PICC LINE AND LEFT AV SHUNT THRILL AND B/P BRUIT FELT. HE HAS MAGNESIUM RUNNING VIA MIDLINE ORDERED DUE TO LOW MAGNESIUM LEVEL. ALL FALLS PRECAUTIONS IN PLACE AND CALL GOMEZ IN REACH. PT WAS TURNED, CLEANED AND REPOSITIONED IN BED. V/S FOLLOWS: T 97 R 18 B/P 96/54 P 69 02 96% ON ROOM AIR.
[2020-03-06] MEDS ORDERED: POTASSIUM CHLORIDE 40 MEQ, LIDOCAINE MPF 1% 25 MG in NACL 0.9% 250 ML IV SCH (21:00)
--- NOTE | 2020-03-06 21:00 | NUR ---
PT IN BED, AOX 1-2, NO C/O OF PAIN OR DISTRESS NOTED. RIGHT ARM HAS DOUBLE LUMEN MIDLINE, ELBOW RAISED DUE TO LOWER ARM EDEMA. 2ND BAG OF MAGNESIUM HUNG AND RUNNING AT 25MLS/HR. PT RECEIVED ORDERED ZOCOR FOR HLD. PURPOSE OF MEDICATION , RISKS AND BENEFITS EXPLAINED TO PT AT BEDSIDE, REINFORCEMENT NEEDED. PT PLATELETS ARE 86. CALLED FAMILY SERVICES WORKER FOR MD TAMEZ, MD JUAN, WHO SAID OK TO HOLD ELEQUIS DUE TO LOW PLATELETS.
[2020-03-06] MEDS: SIMVASTATIN 10 MG TAB PO SCH (21:17)
--- NOTE | 2020-03-06 22:00 | NUR ---
PT WAS FOUND WITH MIDLINE ALMOST ALL THE WAY OUT. PT ARM WAS LEAKING BLOOD ONTO PILLOW AND GOWN, PT WAS INSTRUCTED TO LIFT ARM AND BEND ARM AT THE ELBOW TO STOP THE BLEEDING, WHEN RN RETURNED WITH DRESSINGS MIDLINE WAS ALL THE WAY OUT BUT BLEEDING WAS STOPPED. THE TIP OF MIDLINE CAME OUT CLEAN AND COMPLETE. PT DID NOT YET RECEIVE THE ORDERED IV POTASSIUM FLUIDS. SPOKE WITH MD JUAN WHOM ORDERED PO 40 MEQ OF POTASSIUM ELIXER. FOR LOW POTASSIUM.
[2020-03-07] VITALS: BP 105/65
--- NOTE | 2020-03-07 | NUR ---
PT IN BED RESTING WITH EYES CLOSED, V/S FOLLOWS: T 97.5 P 103 R 18 B/P 105/65 02 97% ON ROOM AIR. ALL FALLS PRECAUTIONS IN PLACE.
[2020-03-07] MEDS ORDERED: POTASSIUM CHLORIDE 20% 40 MEQ/15 ML UDC GT SCH (00:05)
[2020-03-07] MEDS: DEXT 5% /NACL 0.9% 1,000 ML IV SCH ×3 (00:21→21:58)
[2020-03-07] MEDS ORDERED: Z-GUARD PASTE TP PRN (01:05)
--- NOTE | 2020-03-07 03:15 | NUR ---
PT WAS FOUND ON FLOOR NEXT TO LOW BED, HE WAS ALERT AND AT BASELINE FUNCTIONING. PT DENIES ANY PAIN AND DENIES HITTING HEAD OR ANY INJURIES. SKIN INTACT, PT EYES EQUAL AND REACTIVE TO LIGHT. PT WAS CLEANED, AND ASSISTED BACK TO BED. CALLED. ALSO CHARGE AND CUTTING MACHINE TENDER HELPER MADE AWARE OF THE FALL. WILL CALL MD TO MAKE THEM AWARE AND RECEIVE ANY NEW ORDERS.
--- NOTE | 2020-03-07 03:35 | NUR ---
PT HAD UNWITNESSED FALL FROM BED, NO INJURIES NOTED, PT DENIES PAIN. AIRCRAFT MAINTENANCE ENGINEER FOR MD DASHAWN JUAN MADE AWARE, NEW ORDERS NOTED.
[2020-03-07 04:00] VITALS: BP 83/48
--- NOTE | 2020-03-07 04:15 | NUR ---
PT IN BED RETURNED FROM RADIOLOGY , NO S/S OF PAIN OR DISTRESS PT RESTING WITH EYES CLOSED BUT AROUSABLE TO NAME AND LIGHT TOUCH V/S FOLLOWS: T 97.3 P 64 R 18 B/P 83/48 02 100% ON ROOM AIR. ALL FALLS PRECAUTIONS IN PLACE.
[2020-03-07 06:45] LABS: BASOPHILS % (AUTO) 0.5 % (0.0-2.0); EOSINOPHILS # (AUTO) 0.1 K/uL (0-0.4); EOSINOPHILS % (AUTO) 1.9 % (0.0-4.0); HEMATOCRIT 27.5 % (36-52); HEMOGLOBIN 8.6 g/dL (12.0-18.0); LYMPHOCYTES # (AUTO) 0.6 K/uL (2.0-11.5); LYMPHOCYTES % (AUTO) 13.8 % (20.5-51.1); MEAN CORPUSCULAR HEMOGLOBIN 26 pg (27-31); MEAN CORPUSCULAR HGB CONC 31 g/dL (33-37); MEAN CORPUSCULAR VOLUME 81.8 fL (80-94); MONOCYTES # (AUTO) 0.3 K/uL (0.8-1.0); MONOCYTES % (AUTO) 7.1 % (1.7-9.3); NEUTROPHILS # (AUTO) 3.4 K/uL (1.8-7.7); NEUTROPHILS % (AUTO) 76.7 % (42.2-75.2); PLATELET COUNT (AUTO) 80 K/uL (140-450); RED BLOOD CELL COUNT(AUTO) 3.37 MIL/uL (4.20-6.10); RED CELL DISTRIBUTION WIDTH 16.8 % (11.6-13.7); WHITE BLOOD COUNT (AUTO) 4.4 K/uL (4.8-10.8)
[2020-03-07 06:58] LABS: ANION GAP 10.3 (8-16); CARBON DIOXIDE 27.9 mmol/L (21-32); CHLORIDE 106 mmol/L (98-107); GLUCOSE 82 mg/dL (74-106); POTASSIUM 3.2 mmol/L (3.5-5.1); SODIUM SERUM 141 mmol/L (136-145); UREA NITROGEN, BLOOD 15 mg/dL (7-18)
[2020-03-07 07:04] LABS: CREATININE 4.3 mg/dL (0.6-1.3)
[2020-03-07 07:09] LABS: MAGNESIUM 1.8 mg/dL (1.8-2.4); PHOSPHORUS 2.7 mg/dL (2.5-4.9)
--- NOTE | 2020-03-07 07:10 | NUR ---
RECEIVED REPORT FROM NIGHT NURSE PATIENT IS SLEEPING, ON ROOM AIR, WITH LEFT AV SHUNT FOR HEMODIALYSIS, NO IV ACCESS AT THIS TIME. SCHEDULED FOR HEMODIALYSIS AND DIALYSIS NURSE WAS INFORMED. SAFETY MEASURES IN PLACE, CALL LIGHT WITHIN REACH. WILL CONTINUE TO MONITOR.
[2020-03-07 08:00] VITALS: BP 117/62
[2020-03-07] MEDS: APIXABAN 2.5 MG TAB PO SCH ×2 (09:00→21:00)
[2020-03-07] MEDS: PANTOPRAZOLE 40 MG INJ VIAL IVP SCH (09:00)
[2020-03-07] MEDS: MIDODRINE 5 MG TAB PO SCH ×4 (09:00→16:33)
--- NOTE | 2020-03-07 09:25 | NUR ---
CALLED [facility] AND SPOKE TO SAMI TO FOLLOW UP HOME HEALTH FOR PT KENA. SHE SAID SHE WILL TELL AMOS AND SHE WILL CALL ME BACK.
--- NOTE | 2020-03-07 09:30 | NUR ---
PATIENT HAS NO APPETITE EATING AND PREFER TO SLEEP AT THIS TIME. SAFETY MEASURES IN PLACE, CALL LIGHT WITHIN REACH. WILL CONTINUE TO MONITOR.
[2020-03-07] MEDS: allopurinoL 100 MG TAB PO SCH (09:31)
[2020-03-07] MEDS: ASPIRIN 81 MG TAB.CHEW PO SCH (09:31)
--- NOTE | 2020-03-07 09:38 | NUR ---
MEDICATIONS DUE GIVEN PATIENT IS ABLE TO RESPOND AND OBEYS TO COMMANDS. CHECK VITAL SIGNS BP 117/62, PA 91. BP MEDICATIONS NOT GIVEN PT IS SCHEDULED FOR DIALYSIS TODAY. PANTOPRAZOLE NOT GIVEN, NO IV ACCESS AND DOCTOR IS AWARE OF IT. SAFETY MEASURES IN PLACE, CALL LIGHT WITHIN REACH. WILL CONTINUE TO MONITOR.
--- NOTE | 2020-03-07 09:50 | NUR ---
PT'S DAUGHTER CALLED FOR AN UPDATE AT THIS TIME,INFORMED ABOUT THE TEST RESULTS, LABORATORY RESULTS AND CONDITION OF THE PATIENT.
[2020-03-07 12:00] VITALS: BP 85/33
--- NOTE | 2020-03-07 12:00 | NUR ---
DR BRADLEY ORDERED HEMODIALYSIS FOR PATIENT 3HRS. 3K, NO UF. AND ALBUMIN 25% 100CC X1. SAFETY MEASURES IN PLACE, CALL LIGHT WITHIN REACH. WILL CONTINUE TO MONITOR
[2020-03-07] MEDS ORDERED: ALBUMIN HUMAN 25% 100 ML IV SCH (13:00)
[2020-03-07] MEDS: Z-GUARD PASTE TP SCH (13:16)
--- NOTE | 2020-03-07 13:17 | NUR ---
PATIENT WAS CLEANED AND CHANGED DRESSING, WOUND ASSESSMENT DONE. WOUND IS DRY AND NO DISCHARGES NOTED. PT IS STABLE. BP MEDICATION NOT GIVEN PATIENT IS FOR HEMODIALYSIS AND BP 85/33 UT 100.SAFETY MEASURES IN PLACE AND CALL LIGHT WITHIN REACH. WILL CONTINUE TO MONITOR.
--- NOTE | 2020-03-07 14:00 | NUR ---
CALLED DAUGHTER YRN AND TOLD HER THAT THE PATIENT IS CLEARED FOR DC. SHE SAID HIS NOT READY FOR DC AND QUESTIONED THE DC ORDER. SHE SAID SHE WILL MAKE AN APPEAL I GAVE HER THE PHONE NUMBER.
--- NOTE | 2020-03-07 15:40 | NUR ---
MADE ROUNDS AT THIS TIME PT SLEEPING COMFORTABLY NO DISTRESS NOTED, DENIES PAIN. SAFETY MEASURES IN PLACE AND CALL LIGHT WITHIN REACH. WILL CONTINUE TO MONITOR.
[2020-03-07 16:00] VITALS: BP 82/46
[2020-03-07] MEDS ORDERED: ALBUMIN HUMAN 25% 100 ML IV ONE ×3 (16:50→17:13)
--- NOTE | 2020-03-07 17:00 | NUR ---
HEMODIALYSIS STARTED AT THIS TIME CHECK VITAL SIGNS BP 80/46, GA 100 T: 97.3 O2SAT 94% RR 18. PATIENT WAS GIVEN ALBUMIN 25% [id number] BY THE DIALYSIS NURSE DOMI DUNHAM RN.
--- NOTE | 2020-03-07 18:33 | NUR ---
DR ANGELA ORDERED PICC LINE INSERTION FOR PATIENT.CONSENT WAS GIVEN BY THE PATIENT AND .
--- NOTE | 2020-03-07 19:00 | NUR ---
PICC LINE IS INSERTED AT THIS TIME.
--- NOTE | 2020-03-07 19:43 | NUR ---
ENDORSED PT TO NIGHT NURSE FOR CONTINUITY OF CARE. PT IS STABLE
[2020-03-07 20:00] VITALS: BP 103/46
--- NOTE | 2020-03-07 20:00 | NUR ---
PICC LINE INSERTION AND HD AT BEDSIDE IN PROGRESS.
--- NOTE | 2020-03-07 20:30 | NUR ---
PICC LINE INSERTION COMPLETED DOUBLE LUMEN WITH INTACT DRESSING; CHARGE NURSE TO PLACE ORDERS FOR CXR CONFIRMATION. PER JABIER PICC LINE NURSE PICC LINE OK TO USE. PT ALSO COMPLETED HD DIALYSIS NURSE SAID THAT PT OUTPUT WAS ZERO DUE TO LOW B/P NO FLUID TAKEN OUT. ACCORDING TO DAYSHIFT NURSE MIDODRINE WAS HELD BEFORE HD AND ALBUMIN WAS ADDED TO PUMP UP BLOOD PRESSURE. PT SITTING UP IN BED EATING SUPPER; NO S/S OF PAIN OR DISTRESS NOTED. PT DECLINES TO BE TURNED OR CHANGED SAYING THEY CHANGED ME.
--- NOTE | 2020-03-07 21:30 | NUR ---
PT LYING IN BED WITH EYES CLOSED AND RESTING, BUT AROUSABLE TO NAME AND LIGHT TOUCH. PT CONTINUES TO REFUSE TO BE TURNED AND CHANGED. PT ASKED IN HUNGARIAN AND TAGOLIC AND STILL REFUSED TO BE TURNED, CLAIMING HE IS CLEAN AND THEY CHANGED HIM ALREADY. PT GIVEN ORDERED ZOCOR, EDUCATION REGARDING MEDICATION, PURPOSES AND SIDE EFFECTS INCLUDED, PT UNABLE TO COMPREHEND. SPOKE WITH MD ANGELA REGARDING ELIQUIS, PT PLATELETS AT 80, MAY HOLD ELIQUIS AT THIS TIME. MD ANGELA ALSO OK TO D/C NEURO CHECK S DUE TO HEAD CT NEGATIVE. IV SITE INTACT AND RUNNING D5NS AT 100MLS/HR. ALL FALLS PRECAUTIONS IN PLACE.
[2020-03-07] MEDS: SIMVASTATIN 10 MG TAB PO SCH (21:42)
--- NOTE | 2020-03-07 22:00 | NUR ---
PT ASLEEP IN BED NO S/S OF PAIN OR DISCOMFORT NOTED. IV RUNNING D5N/S AT 100MLS/HR ORDERED. ALL FALLS PRECAUTIONS IN PLACE.
[2020-03-08] VITALS: BP 113/40
--- NOTE | 2020-03-08 | NUR ---
PT WAS TURNED, CHANGED AND REPOSITIONED N BED.V/S STABLE . ALL FLUIDS RUNNING ORDERED.
[2020-03-08] MEDS: Z-GUARD PASTE TP SCH ×2 (01:00→13:19)
[2020-03-08 04:00] VITALS: BP 111/43
--- NOTE | 2020-03-08 04:00 | NUR ---
PT TURNED, CHANGED AND REPOSITIONED NI BED. HYDROGUARD APPLIED TO SKIN. ALL V/S IN NORMAL LIMITS. PT DENIES ANY PAIN OR DISTRESS NOTED.
--- NOTE | 2020-03-08 07:15 | NUR ---
RECEIVED REPORT FROM NIGHT NURSE, PT IS DONOVANO X2-3, ON ROOM AIR AND CARDIAC DIET WITH IV SITES INTACT AND PATENT PICC LINE DOUBLE LUMEN, LEFT AV SHUNT FOR HEMODIALYSIS. SAFETY MEASURES IN PLACE AND CALL LIGHT WITHIN REACH. WILL CONTINUE TO MONITOR.
[2020-03-08 07:40] LABS: BASOPHILS % (AUTO) 0.4 % (0.0-2.0); EOSINOPHILS # (AUTO) 0.1 K/uL (0-0.4); EOSINOPHILS % (AUTO) 2.2 % (0.0-4.0); HEMATOCRIT 24.4 % (36-52); HEMOGLOBIN 7.6 g/dL (12.0-18.0); LYMPHOCYTES # (AUTO) 0.8 K/uL (2.0-11.5); LYMPHOCYTES % (AUTO) 17.2 % (20.5-51.1); MEAN CORPUSCULAR HEMOGLOBIN 25 pg (27-31); MEAN CORPUSCULAR HGB CONC 31 g/dL (33-37); MEAN CORPUSCULAR VOLUME 81.2 fL (80-94); MONOCYTES # (AUTO) 0.3 K/uL (0.8-1.0); MONOCYTES % (AUTO) 6.6 % (1.7-9.3); NEUTROPHILS # (AUTO) 3.2 K/uL (1.8-7.7); NEUTROPHILS % (AUTO) 73.6 % (42.2-75.2); PLATELET COUNT (AUTO) 74 K/uL (140-450); RED BLOOD CELL COUNT(AUTO) 3.01 MIL/uL (4.20-6.10); RED CELL DISTRIBUTION WIDTH 16.2 % (11.6-13.7); WHITE BLOOD COUNT (AUTO) 4.4 K/uL (4.8-10.8)
[2020-03-08 07:53] LABS: MAGNESIUM 1.5 mg/dL (1.8-2.4); PHOSPHORUS 2.1 mg/dL (2.5-4.9)
[2020-03-08 07:57] LABS: ANION GAP 9.8 (8-16); CARBON DIOXIDE 32.2 mmol/L (21-32); CHLORIDE 104 mmol/L (98-107); GLUCOSE 75 mg/dL (74-106); SODIUM SERUM 143 mmol/L (136-145); UREA NITROGEN, BLOOD 9 mg/dL (7-18)
[2020-03-08 08:00] VITALS: BP 110/66
[2020-03-08] MEDS: MIDODRINE 5 MG TAB PO SCH ×3 (09:00→17:33)
[2020-03-08] MEDS: APIXABAN 2.5 MG TAB PO SCH ×2 (09:00→21:00)
[2020-03-08] MEDS: DEXT 5% /NACL 0.9% 1,000 ML IV SCH ×2 (09:01→17:36)
[2020-03-08] MEDS: PANTOPRAZOLE 40 MG INJ VIAL IVP SCH (09:05)
[2020-03-08] MEDS: ASPIRIN 81 MG TAB.CHEW PO SCH (09:05)
[2020-03-08] MEDS: allopurinoL 100 MG TAB PO SCH (09:06)
--- NOTE | 2020-03-08 09:15 | NUR ---
MEDICATIONS DUE GIVEN AND CHECK VITAL SIGNS PRIOR TO MEDICATION. BP 140/75 TX 103. MIDODRINE HCL NOT GIVEN PATIENT BP IS HIGH AND IS 74. PATIENT TOLERATED WELL. APIXABAN NOT GIVEN PLATELET COUNT IS 74. SAFETY MEASURES IN PLACE CALL LIGHT WITHIN REACH. WILL CONTINUE TO MONITOR.
--- NOTE | 2020-03-08 11:28 | NUR ---
PATIENTS POTASSUIM IS 3.0 GAVE POTASSUIM CHLORIDE 200MEQ/WATER FOR INJ PREMIX 200ML ORDERD. SAFETY MEASURES IN PLACE CALL LIGHT WITHIN REACH WILL CONTINUE TO MONITOR.
[2020-03-08 12:00] VITALS: BP 152/68
--- NOTE | 2020-03-08 13:25 | NUR ---
CHANGED PATIENT AND WOUND ASSESSMENT DONE ON THE SACRAL AREA.. BP MEDICATION ON HOLD DUE TO HIGH BP. SAFETY MEASURES IN PLACE CALL LIGHT WITHIN REACH.WILL CONTINUE TO MONITOR
[2020-03-08] MEDS ORDERED: MAG SULF 2000 MG/WATER PREMIX 50 ML IV SCH (14:00)
[2020-03-08 16:00] VITALS: BP 103/44
--- NOTE | 2020-03-08 17:20 | NUR ---
MEDICATION DUE GIVEN AND CHECK VITAL SIGNS PRIOR TO MEDICATION BP 125/55 SC 92. PT IS STABLE AND SLEEPING. SAFETY MEASURES IN PLACE WILL CONTINUE TO MONITOR.
[2020-03-08] MEDS ORDERED: POTASSIUM CHLORIDE 20% 40 MEQ/15 ML UDC GT SCH (19:05)
--- NOTE | 2020-03-08 19:15 | NUR ---
ENDORSED TO NIGHT NURSE FOR CONTINUITY OF CARE. PT IS STABLE.
--- NOTE | 2020-03-08 19:30 | NUR ---
RECEIVED ENDORSEMENT FORM DAYSHIFT RN AT BEDSIDE FOR CONTINUITY OF CARE, PT IN STABLE CONDITION.
[2020-03-08 20:00] VITALS: BP 123/60
--- NOTE | 2020-03-08 21:00 | NUR ---
PT TURNED AND REPOSITIONED IN BED, HE IS AOX2 WITH NO S/S OF PAIN OR DISTRESS NOTED. PT ON ROOM AIR. PT PICC LINE INTACT AND ASYMPTOMATIC RUNNING N/S AT 100MLS/HR. SPOKE WITH MD ANGELA WHO SAID OK TO HOLD ELEQUIS DUE TO LOW PLATELETS.PT GIVEN POTASSIUM CHLORIDE AND ZOCOR, EDUCATION REGARDING MEDICATION PROVIDED TO PT AT BEDSIDE.PT COULD NOT VERBALIZE UNDERSTANDING.ALL FALLS PRECAUTIONS IN PLACE.
[2020-03-08] MEDS: SIMVASTATIN 10 MG TAB PO SCH (21:47)
[2020-03-09] VITALS: BP 136/67
--- NOTE | 2020-03-09 | NUR ---
PT IN BED RESTING. PT WANTED TO PULL OUT PICC LINE , BUT IT WAS EXPLAINED WHAT IT IS FOR AND HE SAID OK. V/S STABLE ALL REQUESTS ATTENDED ORDERED. MD ANGELA CXLD HIS UA DUE TO PT BEING ON HD 3 X A WEEK. ALL REQUESTS ATTENDED AND ANFD ALL FALLS PROTOCOL IN PLACE.
[2020-03-09] MEDS: Z-GUARD PASTE TP SCH ×2 (01:00→13:00)
--- NOTE | 2020-03-09 03:00 | NUR ---
CHECKED ON PATIENT, STILL SLEEPING BUT NO COMPLAINTS OF PAIN. NO S/ SX'S OF RESPIRATORY DISTRESS Addendum: 03/10/20 at 0434 by Rachel Stapleton RN DELETE PATIENT Addendum: 03/10/20 at 7524 by Rachel Stapleton RN DELETE NOTE
[2020-03-09] MEDS: DEXT 5% /NACL 0.9% 1,000 ML IV SCH ×3 (03:08→23:36)
--- NOTE | 2020-03-09 03:30 | NUR ---
PT IN BED V/S FOLLOWS; T 97.2 P 93 R 18 B/P 130/58 02 96% ON ROOM AIR.
[2020-03-09 04:00] VITALS: BP 130/58
--- NOTE | 2020-03-09 04:00 | NUR ---
PT WAS TURNED, CHANGED AND REPOSITIONED IN BED. WOUND CARE PROVIDED TO BUTTOCKS, PT PICC LINE INTACT AND RUNNING N/S ORDERED. ALL FALLS PRECAUTIONS IN PLACE AND ALL REQUESTS ATTENDED BY STAFF.
--- NOTE | 2020-03-09 07:30 | NUR ---
RECEIVED REPORT FROM [facility] NURSE, ASSUMED CARE. PT RESTING COMFORTABLY WITH NO S/S OF PAIN AND/OR DISTRESS AT THIS TIME. PERSONAL BELONGINGS, BEDSIDE TABLE, CALL LIGHT WITHIN REACH. WILL CONTINUE TO MONITOR.
[2020-03-09 08:00] VITALS: BP 134/53
--- NOTE | 2020-03-09 10:05 | NUR ---
WOUND CARE EVALUATION NOTE: REASON FOR EVALUATION:BUTTOCKS MAD SKIN ASSESSMENT DONE WITH THIS 79 Y/O MALE PT AAX3, ABLE FOLLOW DIRECTIONS AND ABLE TO TURN AND REPOSITION DURING ASSESSMENT. NO OPEN ACTIVE WOUND,MOISTURE ASSOCIATED DERMATITIS TO BUTTOCKS AND FRANCES-ANAL, SLIT TO BUTTOCKS GROVES 2.1X0.7CM SUPERFICIAL, MOIST, NO ODOR. POC DISCUSSED WITH PT. PT VERBALIZES UNDERSTANDING - CLEANSE BUTTOCKS AND FRANCES-ANAL WITH MILD SOAP AND WATER, PAT DRY, APPLY THIN LAYER Z GUARD BID AND COVER WITH DRY DRESSING -TURN AND REPOSITION PATIENT Q 2H -ASSESS AND MONITOR SKIN CONDITION DURING POSITION CHANGE -OFFLOAD BILATERAL HEELS BY PLACING PILLOWS UNDER CALVES AT ALL TIMES, UNLESS OTHERWISE CONTRAINDICATED -PRESSURE REDISTRIBUTION BY PLACING PILLOWS AND OFFLOADING SACRALCOCCYX -KEEP SKIN CLEAN AND DRY AT ALL TIMES.
[2020-03-09] MEDS: ASPIRIN 81 MG TAB.CHEW PO SCH (10:55)
[2020-03-09] MEDS: allopurinoL 100 MG TAB PO SCH (10:55)
[2020-03-09] MEDS: PANTOPRAZOLE 40 MG INJ VIAL IVP SCH (10:55)
[2020-03-09] MEDS: MIDODRINE 5 MG TAB PO SCH ×3 (10:55→17:05)
--- NOTE | 2020-03-09 11:15 | NUR ---
SPOKE WITH DR. TAMEZ, RE: PLT LEVEL AND ORDER FOR ELIQUIS. STATED TO GIVE MED UNLESS ACTIVE BLEED IS NOTED. NO ACTIVE BLEED NOTED, MED TO BE GIVEN.
[2020-03-09] MEDS: APIXABAN 2.5 MG TAB PO SCH ×2 (11:23→21:00)
[2020-03-09 16:00] VITALS: BP 140/33
--- NOTE | 2020-03-09 16:51 | NUR ---
03/09/20 RD FOLLOW UP COMPLETED PLEASE REFER TO NUTRITION ASSESSMENT UNDER CARE ACTIVITY FOR ESTIMATED NUTRITIONAL NEEDS. 1. CONTINUE MECHANICAL SOFT RENAL 80 GM PROTEIN DIET WITH NEPRO BID TOLERATED 2. ENCOURAGE INCREASING PO INTAKE AND NEPRO BID 3. RD TO FOLLOW-UP 2-3 DAYS, HIGH RISK SALVADOR PORTER, RD
--- NOTE | 2020-03-09 18:32 | NUR ---
CARE PLAN REVIEWED, INTERVENTIONS IMPLEMENTED: LABS AND I/O MONITORED, PT REPOSITIONED THROUGHOUT SHIFT, NUTRITION/HYDRATION ENCOURAGEMENT, HOURLY ROUNDING. VSS, AFEBRILE, O2 SAT >92% ON RA. NO C/O PAIN. SPOKE WITH (DEDRICK) AND DAUGHTER (VARGHESE) DURING SHIFT, RE: PT'S CARE AND DISCHARGE PLAN. PT CONTINUES ON IV FLUID, TOLERATING WELL. PT REFUSED TO EAT BREAKFAST OR LUNCH TODAY, DRANK VERY LITTLE FLUIDS, REFUSED TO DRINK SUPPLEMENT DRINKS. STAFF ENCOURAGING PATIENT TO EAT AND DRINK, SPOKE WITH FUNERAL PREARRANGEMENT COUNSELOR. PERSONAL BELONGINGS, BEDSIDE TABLE, CALL LIGHT WITHIN REACH. WILL CONTINUE TO MONITOR.
[2020-03-09 20:00] VITALS: BP 128/42
--- NOTE | 2020-03-09 20:20 | NUR ---
RECEIVED REPORT FROM AM NURSE. PATIENT IS SLEEPING, ON ROOM AIR, WITH LEFT AV SHUNT FOR HEMODIALYSIS, WITH PICC LINE ON THE R UPPER ARM DBL LUMEN. SCHEDULED FOR HEMODIALYSIS LILLIAN. (TTHSAT) AND DIALYSIS NURSE WAS INFORMED. SAFETY MEASURES IN PLACE, CALL LIGHT WITHIN REACH. WILL CONTINUE TO MONITOR.
[2020-03-09] MEDS: SIMVASTATIN 10 MG TAB PO SCH (20:58)
--- NOTE | 2020-03-09 21:05 | NUR ---
PT REFUSED RENETTAIS HE SAID HE DOES NOT WANT TO BE POKED AND HE JUST WANTS TO SLEEP. WILL INFORM IN AM
--- NOTE | 2020-03-09 21:26 | NUR ---
PT CHANGED AND TURNED TO SIDE, OFFLOADED PRESSURE AREAS, NO RESPIRATORY DISTRESS, DENIES PAIN
[2020-03-09] MEDS ORDERED: metFORMIN 500 MG TAB ONE (23:10)
--- NOTE | 2020-03-09 23:15 | NUR ---
WRONG PATIENT- RETURNED THE METFORMIN 2 TABS
[2020-03-10] VITALS (7 sets, daily range): BP systolic 89–138; BP diastolic 35–81
--- NOTE | 2020-03-10 01:02 | NUR ---
PT SLEEPING BUT EASILY AWAKENED BY VERBAL AND TACTILE STIMULI , NO SIGNS OF RESPIRATORY DISTRESS ON R.A Addendum: 03/10/20 at 0436 by Rachel Stapleton RN Z-GUARD WOUND TX DONE
[2020-03-10] MEDS: Z-GUARD PASTE TP SCH ×2 (01:56→13:17)
--- NOTE | 2020-03-10 03:00 | NUR ---
CHECKED ON PATIENT, STILL SLEEPING BUT NO COMPLAINTS OF PAIN. NO S/ SX'S OF RESPIRATORY DISTRESS
--- NOTE | 2020-03-10 03:34 | NUR ---
PATIENT SLEEPING,COMFORTABLE, ASSISTED PT TO TURN TO SIDE, W/ PANTOMIMIST. NO COMPLAINTS AT THIS TIME
--- NOTE | 2020-03-10 05:00 | NUR ---
PT AWAKE, ALERT ORIENTED X 3 , PT WANTING TO SLEEP AND LEFT ALONE, PT ENDORSED TO NEXT SHIFT WITH STABLE CONDITION AT THIS TIME.
--- NOTE | 2020-03-10 07:00 | NUR ---
RECEIVED REPORT FROM PM RNMIRELLA. PT C/O: LOW BP, GEN WEAKNESS, AND DECREASED APPETITE. DX: INTRACTABLE HYPOTENSION. 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 NKA. CODE STATUS: DNR. IV: PICC LINE RT UPPER ARM DOUBLE LUMEN, LT AV SHUNT. IVF: D5NS 100. RYTHMN: SR TO PVC. PT IS ANURIC. WOUND ON SACRUM. PT IS DUE FOR DIALAYSIS THIS MORNING. PLAN: MONITOR POTASSIUM, MONITOR BP, ENCOURAGE INCREASE ORAL INTAKE. PT SPEAKS TAGALOG.
--- NOTE | 2020-03-10 07:15 | NUR ---
ENDORSED TO NEXT NURSE IN STABLE CONDITION
[2020-03-10] MEDS: PANTOPRAZOLE 40 MG INJ VIAL IVP SCH (08:33)
[2020-03-10] MEDS: ASPIRIN 81 MG TAB.CHEW PO SCH (08:33)
[2020-03-10] MEDS: allopurinoL 100 MG TAB PO SCH (08:35)
[2020-03-10] MEDS: MIDODRINE 5 MG TAB PO SCH ×5 (08:36→17:17)
[2020-03-10] MEDS: APIXABAN 2.5 MG TAB PO SCH ×2 (08:37→22:35)
[2020-03-10] MEDS ORDERED: EPOETIN ALFA 10,000 UNITS/ML VIAL SUBQ SCH (09:00)
--- NOTE | 2020-03-10 09:00 | NUR ---
PASSED MEDICATIONS. PT TOLERATED WELL. MONITORING BLOOD PRESSURE. BP AT 0800 113/62. WAITING FOR LEAD ANDROID DEVELOPER.
[2020-03-10] MEDS: DEXT 5% /NACL 0.9% 1,000 ML IV SCH (09:08)
--- NOTE | 2020-03-10 10:30 | NUR ---
HANGED A NEW BAG OF NS. PT RESTING IN BED AWAKE. RESPIRATIONS ARE EVEN AND UNLABORED. NO SIGNS OF DISTRESS
--- NOTE | 2020-03-10 11:27 | NUR ---
TORCH STRAIGHTENER AND HEATER REPORTED THAT THE PT REFUSED A BED BATH. PT WISHES NOT TO BE DISTURBED.
--- NOTE | 2020-03-10 12:30 | NUR ---
Ariella from Medical called and stated that the State physician agree of termination of service - patient's appeal is denied. Reference number [id number] and a letter will be sent to the family.
--- NOTE | 2020-03-10 14:30 | NUR ---
CALLED AIRCRAFT DESIGNER REGARDING ORDER FOR DIALYSIS, DR. CARVAJAL CALLED THE MONTESSORI TEACHER DIRECTLY, SALVATORE MCBRIDE WILL BE ARRIVING BETWEEN [phone] FOR DIALYSIS.
[2020-03-10] MEDS ORDERED: PRO5 PO (15:27)
--- NOTE | 2020-03-10 16:00 | NUR ---
CM CALLED, PT WILL BE DC AT 2300 TONIGHT TO HOME. TRANSPORTATION HAS BEEN ARRANGED. NOTIFIED DAUGHTER, SHEILA HEDRICK. MS. HEDRICK IS AWARE. WILL PREPARE D/C PAPER FOR PM SALVATORE.
--- NOTE | 2020-03-10 19:30 | NUR ---
TRANSFER OF CARE TO PM RN. PT IS DUE TO BE DISCHARGE TONIGHT. FAMILY MEMBER AWARE. VS STABLE. NO SIGNS OF DISTRESS
--- NOTE | 2020-03-10 19:35 | NUR ---
RECEIVED PT IN STABLE CONDITION FROM AM NURSE. PT IS TELE. ALERT ,AWAKE AND ORIENTED X3-4. BEDREST. UNDERGOING HD WITH HD NURSE IN ATTENDANCE. HD ACCESS ON LEFT UPPER ARM. PICC LINE ON RT UPPER ARM. IVF INFUSING WELL. PT FOR DC HOME TONIGHT . WILL FOLLOW UP [facility] ABOUT THE TIME OF BUSINESS CONTINUITY DIRECTOR. BED LOWEST POSITION. SIDE RAILS UP . CALL LIGHT PLACED WITHIN REACH. WILL CONTINUE TO MONITOR.
--- NOTE | 2020-03-10 20:25 | NUR ---
LEFT MESSAGE TO DR. Marilou TAMEZ REGARDING RT UPPER ARM PICC LINE. HE ANSWERED BACK AND SAID TO DC THE PICC LINE.
--- NOTE | 2020-03-10 20:30 | NUR ---
CALLED [facility] AND THEY SAID PT WILL BE GREASE WORKER BY [phone]. SO I TOLD YRN , DAUGHTER ABOUT THE TIME OF GREASE WORKER. SHE SAID SHE WILL TELL HER MOM IN [place] ,WHOM THE PT IS GOING TONIGHT . WILL PROVIDE TRANSPORTER THE HOME ADDRESS .
--- NOTE | 2020-03-10 21:20 | NUR ---
HD DONE. HD NURSE SAID NO OUTPUT PER MD . JUST TO CLEAN. LT UPPER ARM AV SHUNT DRESSING IN PLACED. PT REFUSED TO BE CLEANED AND REPOSITIONED.
[2020-03-10] MEDS: SIMVASTATIN 10 MG TAB PO SCH (22:34)
--- NOTE | 2020-03-10 22:40 | NUR ---
CLARIFIED WITH DR. TAMEZ ABOUT THE MIDODRINE . HE SAID TO TAKE 10 MG PO TID AND HOLD IT IF SBP GREATER 140 OR DBP GREATER 85. YRN HEDRICK (DAUGHTER) AND ALSO DEDRICK () MADE AWARE ABOUT THE CHANGE OF THE DOSAGE . BOTH OF THEM VERBALIZED UNDERSTANDING.
--- NOTE | 2020-03-10 23:25 | NUR ---
RIGHT UPPER ARM PICC LINE DISCONTINUED PER MD ORDER. NO BLEEDING NOTED. TIP OF PICC LINE INTACT. DRESSING IN PLACED.
--- NOTE | 2020-03-10 23:30 | NUR ---
ASKED PT IF HE WANTS THIS TIME TO BE CHANGED TO GET READY FOR GOING HOME. HE STILL REFUSED.
--- NOTE | 2020-03-10 23:55 | NUR ---
ABLE TO TURN PT . SACRAL/BUTTOCKS AREA WITH DRESSING DRY AND CLEAN.
[2020-03-11] VITALS: BP 117/52
--- NOTE | 2020-03-11 00:10 | NUR ---
CALLED AGAIN [facility] AND SAID THEY WILL COME IN 30 MINUTES.
--- NOTE | 2020-03-11 01:00 | NUR ---
PT HAD A SMALL BM PER BARREL CUTTER. CLEANED AND KEPT DRY. PT PICKED UP BY [facility] STABLE CONDITION. . ALL DISCHARGE PAPERS AND PERSONAL BELONGINGS WITH PT. YRN AND DEDRICK ( ) MADE AWARE THAT PT WAS JUST PICKED UP.
== END 2020-03-11 01:00 | disposition home health service (06) | DRG 682 ==
LOC: MED 16:06 → MIC 03-03 03:17 → MTU 03-04 06:30
PROVIDERS: ADMIT Family Medicine; ATTEND Family Medicine
PROC: 5A1D70Z Performance of Urinary Filtration, Intermittent, Less than 6 Hours Per Day (ICD-10-PCS; principal; 2020-03-03)
PROC: 02HV33Z Insertion of Infusion Device into Superior Vena Cava, Percutaneous Approach (ICD-10-PCS; 2020-03-03)
PROC: B548ZZA Ultrasonography of Superior Vena Cava, Guidance (ICD-10-PCS; 2020-03-03)
PROC: 5A1D70Z Performance of Urinary Filtration, Intermittent, Less than 6 Hours Per Day (ICD-10-PCS; 2020-03-05)
PROC: 5A1D70Z Performance of Urinary Filtration, Intermittent, Less than 6 Hours Per Day (ICD-10-PCS; 2020-03-07)
PROC: 5A1D70Z Performance of Urinary Filtration, Intermittent, Less than 6 Hours Per Day (ICD-10-PCS; 2020-03-10)
DX: N17.0 Acute kidney failure with tubular necrosis (principal); E43 Unspecified severe protein-calorie malnutrition; R57.0 Cardiogenic shock; N18.6 End stage renal disease; D63.8 Anemia in other chronic diseases classified elsewhere; E87.6 Hypokalemia; I48.0 Paroxysmal atrial fibrillation; I25.10 Atherosclerotic heart disease of native coronary artery without angina pectoris; N28.1 Cyst of kidney, acquired; Z20.828 Contact with and (suspected) exposure to other viral communicable diseases; M10.9 Gout, unspecified; K74.60 Unspecified cirrhosis of liver; E83.39 Other disorders of phosphorus metabolism; E83.42 Hypomagnesemia; E78.5 Hyperlipidemia, unspecified; Z66 Do not resuscitate; Z99.2 Dependence on renal dialysis; Z79.01 Long term (current) use of anticoagulants; Z95.1 Presence of aortocoronary bypass graft; Z68.21 Body mass index [BMI] 21.0-21.9, adult
CPT/HCPCS: 36415; 70450; 71045; 73562; 80048; 80053; 82150; 82948; 83036; 83605; 83690; 83735; 83880; 84100; 84436; 84439; 84443; 84479; 84484; 85025; 85610; 85730; 87040; 87081; 93005; 96365; 96366; 96367; 97110; 97116; 97161-GP; 97530; 99291; C1751; C9113; J0696; J0885; J2001; J3475; J3480; J3490; J7030; J7042; P9046; Q0092; Q9967; U0003-CS